=== PATIENT | female | born 2000 | race Caucasian/White ===

== ENCOUNTER 2021-09-08 23:05 | Emergency (ER) | payer OTHER, MEDICAID, SELFPAY ==
--- NOTE | ~2021-09-08 | CT_ITS ---
EXAMINATION: CT abdomen pelvis w con INDICATION: Left lower quadrant pain TECHNIQUE: Computed tomographic images of the abdomen and pelvis were obtained after the administrati on of 100 cc of Omnipaque 350 intravenous contrast. The dose-length product (DLP) was 474.87 mGy-cm. Automated exposure control and iterative reconstruction technique were employed. COMPARISON: None available FINDINGS: The lung bases are clear. The heart size is normal. The liver, spleen, pancreas, gallbladde r, and adrenal glands are normal. The kidneys are unremarkable. No pathologically enlarged abdominal or pelvic lymph nodes are identified. There is no free intraperitoneal gas or evidence of bowel obstr uction. The appendix is normal. IMPRESSION: 1. No CT correlate for the patient's symptoms. Reviewed, dictated and finalized at location A. SPECIALIST
[2021-09-08 23:14] VITALS: BP 144/80; PULSE 98; RESP 18; TEMP 36.8; O2SAT 100
--- NOTE | 2021-09-09 01:15 | ED.GENADULT ---
HPI - General Adult General Chief complaint: Urogenital-Female <José Luis Harris DO - Last Filed: 09/09/21 02:00> Stated complaint: yeast infection <José Luis Harris DO - Last Filed: 09/09/21 02:00> Time Seen by Provider: 09/09/21 00:47 <José Luis Harris DO - Last Filed: 09/09/21 02:00> Source: RN notes reviewed <José Luis Harris DO - Last Filed: 09/09/21 02:00> History of Present Illness HPI narrative: Patient presents emergency department from home for abdominal pain. Patient states that starting Sunday she began to have a rash in the vaginal area on the left side she states that the rash initially had some white-whitish bumps and some of them have now opened states that the area is painful she states she also was having some vaginal discharge and was concerned about a possible yeast infection she states that 2 days ago she began to have some generalized body aches as well as some increased pain in the left lower abdomen states pain is described as sharp and stabbing states she also noticed a mild sore throat starting yesterday she denies any fevers or chills. Patient states she is sexually active states she is followed [facility] by Latosha Akbar <José Luis Harris DO - Last Filed: 09/09/21 02:00> Related Data Home medications: Home Medications Medication Instructions Recorded Confirmed norethindrone 1.5 mg-ethinyl 1 tablet PO DAILY 07/22/21 estradiol 30 mcg(21)/iron 75 mg(7) tablet <José Luis Harris DO - Last Filed: 09/09/21 02:00> Allergies/adverse reactions: Allergies Allergy/AdvReac Type Severity Reaction Status Date / Time No Known Allergies Allergy Verified 07/22/21 11:09 <José Luis Harris DO - Last Filed: 09/09/21 02:00> Review of Systems Review of Systems: Gen.: Denies fevers or chills ENT: Sore throat Respiratory: Denies shortness of breath or cough CV: Denies chest pain or palpitations GI: Reports left lower quadrant abdominal see HPI Musculoskeletal: Denies back pain or muscle pain Neuro: Denies numbness, tingling, weakness or focal weakness Skin: Reports rash over left labia Except as documented, all other systems reviewed and negative <José Luis Harris DO - Last Filed: 09/09/21 02:00> [facility] Past Medical History Medical History: Medical History (Updated 09/09/21 @ 04:04 by Alexia Miranda MD) Chronic GERD <José Luis Harris DO - Last Filed: 09/09/21 02:00> Family History Family History: Family History Mother Hypertension <José Luis Harris DO - Last Filed: 09/09/21 02:00> Social History Social History: Social History Smoking status: Never smoker Alcohol intake: current Substance use: never <José Luis Harris DO - Last Filed: 09/09/21 02:00> Exam Narrative: APPEARANCE: No acute distress, nontoxic, resting in bed EYES: EOMI HEENT: Normocephalic, atraumatic, nares patent or mucosa moist erythema exudate posterior pharynx uvula midline tonsils 2+ there is no intraoral lesions seen RESPIRATORY: No respiratory distress Clear to auscultation bilaterally with no rhonchi wheezing or rales. CARDIOVASCULAR: Regular rate and rhythm without murmurs rubs or gallops. ABDOMINAL: Soft, nondistended tender palpation left lower quadrant left upper quadrant no tenderness right upper quadrant right lower quadrant no rebound or guarding : The right labia is normal in appearance the left labia over the inferior aspect has several open ulcerative wounds consistent with herpes the area is very tender to palpation moderate amount of thick white discharge in vaginal canal no right adnexal tenderness positive left adnexal tenderness, no cervical motion tenderness MUSCULOSKELETAl: Moves all extremities. No clubbing, cyanosis or edema. NEURO: Awake and alert. Following commands, speech normal, no fo
[2021-09-09 01:24] VITALS: BP 107/87; PULSE 89; RESP 18; O2SAT 100
[2021-09-09 01:33] LABS: Basophils Percent Auto 0.3 % (0.2-1.2); Eosinophils Absolute Auto 0.1 K/mm3 (0-0.3); Eosinophils Percent Auto 0.9 % (0-4.4); Hematocrit 38.7 % (37.0-47.0); Hemoglobin 12.4 g/dL (12.0-15.0); Immature Granulocyte Absolute 0.04 K/mm3 (0.00-0.031); Immature Granulocyte Percent A 0.3 % (0-0.5); Lymphocytes Absolute Auto 2.07 K/mm3 (0.9-3.2); Lymphocytes Percent Auto 14.3 % (18.3-44.2); Mean Corpuscular Hemoglobin 28.1 pg (26-34); Mean Corpuscular Volume 87.6 fl (80-100); Mean Platelet Volume 9.7 fl (7.4-10.4); Monocytes Absolute Auto 1.4 K/mm3 (0.1-0.6); Monocytes Percent Auto 9.8 % (2.6-8.5); Neutrophils Absolute Auto 10.8 K/mm3 (1.3-6.7); Neutrophils Percent Auto 74.4 % (45.5-73.1); Platelet Count Result 250 k/mm3 (150-375); Red Blood Count 4.42 M/mm3 (4.2-5.4); Red Cell Distribution Width 12.7 % (11.5-14.5); White Blood Count 14.5 K/mm3 (4.5-10.0)
[2021-09-09 01:49] LABS: Add Urine Microscopic? YES; Appearance Urine Cloudy (Clear); Bilirubin Urine Negative (Negative); Blood Urine Negative (Negative); Color Urine Yellow (Yellow); Glucose Urine UA Negative (Negative); Ketones Urine Negative (Negative); Leukocyte Esterase Ur Negative LEU/UL (Negative); Mucus Urine Rare /lpf; Nitrate Urine Negative (Negative); Protein Urine Negative (Negative); RBC Urine >75 /hpf (0-2); Specific Grav Ur 1.013 (1.001-1.035); Squamous Epithelial Cell Urine Few /hpf (Few); Urobilinogen Urine Negative mg/dL (<2.0); WBC Clumps Urine Present /HPF; WBC Urine 16-20 /hpf
[2021-09-09 02:00] LABS: Alanine Aminotransferase 15 U/L (4-35); Albumin Level 4.3 g/dL (3.5-5.1); Alkaline Phosphatase 49 U/L (38-126); Anion Gap 8 mmol/L (8-16); Aspartate Amino Transferase 24 U/L (14-36); Bilirubin,Total 0.3 mg/dL (0.2-1.3); Blood Urea Nitrogen 10 mg/dL (7-17); Calcium 9.2 mg/dL (8.4-10.2); Carbon Dioxide 25 mmol/L (22-30); Chloride 103 mmol/L (98-107); Estimated Glomerular Filt Rate > 60; Glucose 105 mg/dL (65-110); Lipase 101 U/L (23-300); Potassium 3.8 mmol/L (3.4-5.0); Sodium 136 mmol/L (137-145)
[2021-09-09 02:22] VITALS: BP 109/79; PULSE 81; RESP 15; O2SAT 100
[2021-09-09 04:06] VITALS: BP 117/73; PULSE 78; RESP 17; O2SAT 100
== END 2021-09-09 04:19 | disposition home or self-care (01) ==
PROVIDERS: Emergency Provider Emergency Medicine; PCP Internal Medicine
DX: A60.04 Herpesviral vulvovaginitis (principal)
CPT/HCPCS: 36415; 74177; 80053; 81001; 81025; 83690; 85025; 87070; 87086; 87255; 87491; 87591; 87808; 99284; Q9967

== ENCOUNTER 2021-11-11 02:42 | Day surgery (SDC) | payer OTHER, MEDICAID, SELFPAY ==
[2021-10-28 15:22] VITALS: BMI 27.3
--- NOTE | 2021-11-10 12:58 | P.PNAN_ITS ---
Anes - Initial Pre Proc Eval Procedure: Operation Date: 11/11/21 09:30 Proposed Procedures p Esophagogastroduodenoscopy - Bry Lepe MD Date/Time: 11/10/21 12:58 Surgeon: Bry Lepe MD Pre Op Diagnosis: GERD, Dysphagia Patient Data Age: 21 Gender: F Height: 1.6 m Weight: 70 kg Allergies Allergy/AdvReac Type Severity Reaction Status Date / Time No Known Allergies Allergy Verified 11/11/21 08:41 Home Medications Medication Instructions Recorded Confirmed Type norethindrone 1.5 mg-ethinyl 1 tablet PO DAILY 07/22/21 11/11/21 History estradiol 30 mcg(21)/iron 75 mg(7) tablet omeprazole 20 mg capsule,delayed 20 mg PO DAILY #90 cap 09/27/21 11/11/21 Rx release Patient hx anesthesia problems: none Family hx anesthesia problems: none Results Review: All pre-operative results and documents have been reviewed as part of the pre-operative evaluation. [facility] Past Medical History Medical History (Updated 09/20/21 @ 09:35 by MAITE Feliciano) Chronic GERD Overweight Family History Family History Mother Hypertension Social History Social History Smoking status: Never smoker Alcohol intake: current Alcohol use details: rarely Substance use: never Substance use type: does not use Living arrangements: with family Anes - Eval Final PreProcedure Day of Procedure 11/10/21 12:58 Patient weight: overweight Heart: regular rate and rhythm Lungs: clear to auscultation and normal air movement Airway: Mallampati scale class II Neurological: alert and oriented Last oral intake: >/= 8 hours ASA classification: II Emergent: no Anesthetic plan: proceed Anesthesia type and monitoring: general GIVS and standard monitoring Results Review: All pre-operative results and documents have been reviewed as part of the pre-operative evaluation. Informed Consent: The patient's anesthetic plan and its attendant risks and benefits were discussed with the patient/family/POA. Questions were solicited and answers provided to the satisfaction of the patient/family/POA.
[2021-11-11 08:43] VITALS: BMI 28.0
[2021-11-11] MEDS: LACTATED RINGERS 1,000 ML 150 ML IV CONT (08:51)
--- NOTE | 2021-11-11 08:53 | SUR.PREOP ---
Informed Dr. Salazar about the pt being on an abx for an infection she has in her finger.
--- NOTE | 2021-11-11 09:05 | PM.HPGS ---
History of Present Illness History of Present Illness Consent: Risks, benefits, and alternatives have been discussed and questions answered. Patient agrees to proceed with procedure. Chief complaint: GERD, Dysphagia Narrative: Nii Streeter is a 21 year old female with belching, bloating and dysphagia to solids- all better after using omeprazole. Review of Systems Constitutional: Constitutional: Denies headache(s) and Denies weakness Eyes: Eyes: Denies blurry vision ENT: Reports Normal hearing present, Denies headache(s) and Denies neck pain Cardiovascular: Cardiovascular: Denies chest pain and Denies dyspnea Respiratory: Respiratory: Denies dyspnea Gastrointestinal: Gastrointestinal: Reports no additional gastrointestinal complaints Genitourinary: Genitourinary: Denies dysuria Musculoskeletal: Musculoskeletal: Denies neck pain Integumentary/Breasts: Skin/Breast: Denies dry skin Neurologic: Reports Normal hearing present, Denies headache(s) and Denies weakness Psychiatric: Psychiatric: Denies anxiety Endocrine: Endocrine: Denies change in body appearance Hematologic/Lymphatic: Hematologic/Lymphatic: Denies easy bleeding Allergic/Immunologic: Allergic/Immunologic: Denies urticaria [facility] Past Medical History Medical History (Updated 11/11/21 @ 09:06 by Bry Lepe MD) Bloating Chronic GERD Dysphagia Overweight Family History Family History Mother Hypertension Social History Social History Smoking status: Never smoker Alcohol intake: current Alcohol use details: rarely Substance use: never Substance use type: does not use Living arrangements: with family Meds Home Medications and Allergies Home Medications Medication Instructions Recorded Confirmed Type norethindrone 1.5 mg-ethinyl 1 tablet PO DAILY 07/22/21 11/11/21 History estradiol 30 mcg(21)/iron 75 mg(7) tablet omeprazole 20 mg capsule,delayed 20 mg PO DAILY #90 cap 09/27/21 11/11/21 Rx release Allergies Allergy/AdvReac Type Severity Reaction Status Date / Time No Known Allergies Allergy Verified 11/11/21 08:41 Exam Const: General: comfortable and no acute distress HENMT: General nose exam: Normal nares present Eyes: General: appearance normal, both eyes and all related structures Neck: Neck: no JVD Resp: Auscultation: clear to auscultation bilaterally Cardio: Rate: regular rate Rhythm: regular rhythm GI: Inspection: non-distended GI Palp: Yes Soft to palpation Skin: General skin exam: normal color Neuro: General: gait normal Speech: normal speech Extrem: General: normal to inspection Psych: Mental Status: mental status grossly normal Assessment and Plan Assessment and plan (1) Chronic GERD: Code(s): K21.9 - Gastro-esophageal reflux disease without esophagitis Status: Inactive Assessment and Plan: egd with bx, assess if h pylori, already on ppi (2) Bloating: Code(s): R14.0 - Abdominal distension (gaseous) Status: Acute Assessment and Plan: also check for celiac (3) Dysphagia: Code(s): R13.10 - Dysphagia, unspecified Status: Acute Assessment and Plan: assess if eoe, rings, etc
[2021-11-11 09:31] VITALS: BP 121/72; PULSE 104; RESP 20; O2SAT 98
[2021-11-11 09:41] VITALS: BP 116/74; PULSE 96; RESP 20; O2SAT 99
[2021-11-11 09:51] VITALS: BP 129/89; PULSE 72; RESP 20; O2SAT 99
== END 2021-11-11 10:03 | disposition home or self-care (01) ==
PROVIDERS: PCP Internal Medicine; Visit Provider Internal Medicine Gastroenterology
PROC: 0DJ08ZZ Inspection of Upper Intestinal Tract, Via Natural or Artificial Opening Endoscopic (ICD-10-PCS; CPT 43235; principal; 2021-11-11 09:30)
DX: R13.19 Other dysphagia (principal); K29.50 Unspecified chronic gastritis without bleeding; R14.0 Abdominal distension (gaseous); K21.9 Gastro-esophageal reflux disease without esophagitis
CPT/HCPCS: 43239; 87081; 88305; J2704; J7120